=== PATIENT | male | born 1965 | race American Indian/Alaskan Native ===

== ENCOUNTER 2019-06-04 20:12 | Emergency (ER) | payer SELFPAY ==
[2019-06-04 20:17] VITALS: BP 121/71
--- NOTE | 2019-06-04 20:43 | Emergency Department Report ---
Chief Complaint: Back Pain/Injury Stated Complaint: BACK PAIN Time Seen by Provider: 06/04/19 20:36 - Exam Vital Signs: Vital Signs 06/04/19 20:15 Temperature 97.6 F Pulse Rate 92 H Respiratory 18 Rate Blood Pressure 121/71 O2 Sat by Pulse 97 Oximetry MSE screening note: Focused history and physical exam performed. Due to findings the following was ordered: ED Disposition for MSE Condition: Stable
--- NOTE | 2019-06-04 20:44 | Event Note ---
ED Screening Note ED Screening Note: pt presents with muffled hearing in the left ear that began a month no drainage from the ear states has some discomfort in the ear states also having middle back pain for a month no fall or injury no numbness no weakness no bowel or bladder incontinence has not seen anyone for this has not seen PCP or orthopedic doctor PMHx none no allergies to meds on exam left sided otitis media left sided lumbar paraspinal muscular ttp, no neuro deficits, no midline tenderness
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
[2019-06-04] MEDS ORDERED: traMADol 50 MG TAB PO ONE (22:06)
== END 2019-06-04 22:44 | disposition home or self-care (01) ==
LOC: ED 20:12
DX: S39.012A Strain of muscle, fascia and tendon of lower back, initial encounter (principal); H66.92 Otitis media, unspecified, left ear; Z98.890 Other specified postprocedural states; Z79.899 Other long term (current) drug therapy; X58.XXXA Exposure to other specified factors, initial encounter; Y93.89 Activity, other specified; Y92.89 Other specified places as the place of occurrence of the external cause; Y99.8 Other external cause status
CPT/HCPCS: 99282

== ENCOUNTER 2019-06-05 04:34 | Emergency (ER) | payer SELFPAY ==
[2019-06-05] MEDS ORDERED: ASPIRIN 325 MG TAB PO ONE (04:49)
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
[2019-06-05 05:24] LABS: Basophils # (Auto) 0.1 K/mm3 (0.0-0.1); Basophils % (Auto) 0.8 % (0.0-1.8); Eosinophils # (Auto) 0.2 K/mm3 (0.0-0.4); Eosinophils % (Auto) 2.6 % (0.0-4.3); Hematocrit 39.7 % (35.5-45.6); Hemoglobin 13.3 gm/dl (11.8-15.2); Lymphocytes # (Auto) 2.9 K/mm3 (1.2-5.4); Lymphocytes % (Auto) 37.2 % (13.4-35.0); Mean Corpuscular HGB Conc 34 % (32-34); Mean Corpuscular Volume 85 fl (84-94); Monocytes % (Auto) 13.5 % (0.0-7.3); Platelet Count 522 K/mm3 (140-440); Red Blood Count 4.68 M/mm3 (3.65-5.03); Red Cell Distribution Width 15.2 % (13.2-15.2)
[2019-06-05 06:03] LABS: BUN/Creatinine Ratio 12; Blood Urea Nitrogen 11 mg/dL (9-20); Calcium 9.6 mg/dL (8.4-10.2); Hemolysis Index 3
[2019-06-05] MEDS ORDERED: BENZONATATE 100 MG CAP PO ONE (06:35)
[2019-06-05] MEDS ORDERED: IPRATROPIUM/ALBUTEROL SULFATE 3 ML AMPUL.NEB IH ONE (06:35)
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
[2019-06-05] MEDS ORDERED: DEXAMETHASONE 4 MG TAB PO ONE (06:54)
[2019-06-05 08:56] VITALS: BP 116/68
== END 2019-06-05 08:58 | disposition home or self-care (01) ==
LOC: ED 04:34
DX: J20.9 Acute bronchitis, unspecified (principal); F17.200 Nicotine dependence, unspecified, uncomplicated; Z98.890 Other specified postprocedural states; Z79.899 Other long term (current) drug therapy
CPT/HCPCS: 36415; 71045; 80048; 84484; 85025; 93005; 93010; 94640; 99284; J8540; 94644